=== PATIENT | female | born 1985 | race Caucasian/White ===

== ENCOUNTER 2016-08-23 13:43 | Emergency (ER) | payer OTHER ==
[2016-08-23] MEDS ORDERED: ASPIRIN 81 MG CHEWABLE CTB ONE (14:28)
[2016-08-23] MEDS ORDERED: METOPROLOL TARTRATE 25 MG TAB ONE (14:28)
[2016-08-23] MEDS: METOPROLOL TARTRATE 25 MG TAB PO ONE (14:32)
[2016-08-23] MEDS: ASPIRIN 81 MG CHEWABLE CTB PO ONE (14:32)
[2016-08-23 14:48] LABS: BASOPHILS % (AUTO) 1 % (0-3); EOSINOPHILS % (AUTO) 1 % (0-9); HEMATOCRIT 39 % (35-47); MEAN CORPUSCULAR HGB CONC 35.6 gm/dl (32.0-36.0); MEAN CORPUSCULAR VOLUME 89 fL (81-99); MONOCYTES % (AUTO) 5.5 % (0-12); NEUTROPHILS % (AUTO) 64.8 % (37-80)
[2016-08-23 14:50] LABS: CALCIUM 9.1 mg/dl (8.5-10.1); POTASSIUM 3.6 mMol/L (3.5-5.1)
[2016-08-23 19:40] VITALS: TEMP 99.4
[2016-08-23 19:44] VITALS: BP 120/68; PULSE 70; RESP 16; O2SAT 100
== END 2016-08-23 15:32 | disposition home or self-care (01) ==
LOC: ED 13:43
DX: R07.9 Chest pain, unspecified (principal)
CPT/HCPCS: 80048; 84484; 85025; 85378; 93005; 99283; 99284

== ENCOUNTER 2017-08-29 21:36 | Emergency (ER) | payer OTHER ==
[2017-08-29 21:36] VITALS: O2SAT 100
[2017-08-29] MEDS ORDERED: NITROGLYCERIN 0.4 MG TAB SL PRN (22:09)
[2017-08-29] MEDS ORDERED: SODIUM CHLORIDE 0.9% FLUSH 10 ML SOL IV PRN (22:09)
[2017-08-29] MEDS ORDERED: ASPIRIN 81 MG CHEWABLE CTB PO STA (22:09)
[2017-08-29 22:10] VITALS: RESP 24; TEMP 98.2
[2017-08-29 22:10] LABS: BASOPHILS % (AUTO) 1 % (0-3); EOSINOPHILS % (AUTO) 2 % (0-9); HEMATOCRIT 35 % (35-47); HEMOGLOBIN 12.7 gm/dl (12.0-15.5); MEAN CORPUSCULAR HEMOGLOBIN 31.6 pg (27.0-32.0); MEAN CORPUSCULAR VOLUME 88 fL (81-99); MONOCYTES % (AUTO) 7.2 % (0-12); NEUTROPHILS % (AUTO) 55.2 % (37-80)
[2017-08-29] MEDS ORDERED: ASPIRIN 81 MG CHEWABLE CTB ONE (22:15)
[2017-08-29 22:24] LABS: ALBUMIN 3.8 gm/dl (3.4-5.0); ALKALINE PHOSPHATASE 69 IU/L (46-116); ALT 24 IU/L (14-63); AST 18 IU/L (15-37); BILIRUBIN,TOTAL 0.7 mg/dl (0.2-1.0); BLOOD UREA NITROGEN 12 mg/dl (7-18); CALCIUM 8.8 mg/dl (8.5-10.1); CARBON DIOXIDE 24.8 mEq/L (21-32); CHLORIDE 105 mMol/L (98-107); CREATINE KINASE 95 U/L (26-192); CREATININE 0.82 mg/dl (0.60-1.00); GLOM FILT RATE 81 mL/min (>60); GLUCOSE 74 mg/dl (74-106); POTASSIUM 3.4 mMol/L (3.5-5.1); SODIUM 139 mMol/L (136-145); TOTAL PROTEIN 7.4 gm/dl (6.4-8.2); TROP I < 0.017 ng/ml (0.000-0.056)
[2017-08-29] MEDS ORDERED: LORAZEPAM 0.5 MG TAB PO ONE (22:36)
[2017-08-29] MEDS ORDERED: LORAZEPAM 0.5 MG TAB ONE (22:39)
[2017-08-29 22:43] VITALS: BP 128/77; PULSE 64
== END 2017-08-29 22:56 | disposition home or self-care (01) ==
LOC: ED 21:36
DX: F41.9 Anxiety disorder, unspecified (principal); M79.605 Pain in left leg; M79.604 Pain in right leg
CPT/HCPCS: 36415; 71045; 80053; 82550; 84484; 85025; 93005; 99283; 99284; A9270-GY

== ENCOUNTER 2017-09-21 17:37 | Emergency (ER) | payer OTHER ==
[2017-09-21 18:00] VITALS: BP 129/92; PULSE 74; RESP 22; TEMP 98.4; O2SAT 97
== END 2017-09-21 19:15 | disposition home or self-care (01) ==
LOC: ED 17:37
DX: S92.351A Displaced fracture of fifth metatarsal bone, right foot, initial encounter for closed fracture (principal); W01.0XXA Fall on same level from slipping, tripping and stumbling without subsequent striking against object, initial encounter
CPT/HCPCS: 73630; 99283